=== PATIENT | male | born 1955 | race Two or more races ===

== ENCOUNTER 2017-03-08 15:04 | Observation (INO) | payer MEDICAID ==
[~2017-03-08] VITALS: Ht 167.6 cm; Wt 99.8 kg
[2017-03-08 16:08] LABS: Basophils # (auto) 0 uL; Basophils % (auto) 0.2 % (0.0-2.0); Eosinophils # (auto) 0 uL; Hemoglobin 16.8 g/dL (13.5-17.5); Lymphocytes # (auto) 1.5 uL; Lymphocytes % (auto) 10.4 % (10.0-50.0); Mean Corpuscular Hemoglobin 30.3 pg (28.0-32.0); Mean Corpuscular Hgb Conc. 34.2 g/dL (32.0-36.0); Mean Corpuscular Volume 88.4 fL (80.0-100.0); Mean Platelet Volume 7.1 fL (7.4-10.4); Neutrophils # (auto) 11.8 uL; Neutrophils % (auto) 82.4 % (37.0-80.0); Platelet Count (auto) 229 10^3/uL (140-450); Red Cell Distribution Width 13.3 % (11.6-16.0); SUSPECT VIEW TRANSMISSION; White Blood Cell 14.3 10^3/uL (4.4-10.8)
[2017-03-08 16:27] LABS: Albumin 3.5 g/dL (3.4-5.0); Anion Gap 13 (5-15); BUN/Creatinine Ratio 10.9; Blood Urea Nitrogen 14 mg/dL (7-18); Calcium 8.7 mg/dL (8.5-10.1); Carbon Dioxide 19 mmol/L (21-32); Chloride 104 mmol/L (98-107); GFR African American 74 mL/min; GFR Non-African American 61 mL/min; Glucose 129 mg/dL (74-106); Magnesium 2.2 mg/dL (1.6-2.6); Potassium 3.4 mmol/L (3.5-5.1); Sodium 136 mmol/L (136-145)
[2017-03-08] MEDS ORDERED: SODIUM CHLORIDE 0.9% 1,000 ML IV ONE (16:35)
[2017-03-08 16:40] LABS: Alkaline Phosphatase 87 U/L (45-117); Aspartate Aminotransferase 27 U/L (15-37); Bilirubin, Total 1.2 mg/dL (0.2-1.0); Total Protein 7.5 g/dL (6.4-8.2)
[2017-03-08] MEDS ORDERED: MECLIZINE HCL 25 MG TAB PO ONE (16:45)
[2017-03-08 17:13] LABS: Urine Bilirubin Negative (Negative); Urine Color Orange (Yellow); Urine Glucose Normal (Normal); Urine Hyaline Cast FEW /lpf (0 - 2); Urine Ketone Negative (Negative); Urine Mucus FEW (None Seen); Urine Nitrite Negative (Negative); Urine RBC 2 /hpf (0 - 3); Urine Squamous Epithelial Cell FEW /hpf (<5); Urine Urobilinogen Normal (Negative); Urine pH 5.5 (5.0-8.0)
[2017-03-08 17:14] LABS: Urine Blood 1+ /uL (Negative)
[2017-03-08] MEDS ORDERED: POTASSIUM CHL 10% (20 MEQ/15ML) ORAL SOLN PO ONE (17:45)
[2017-03-08 18:04] VITALS: BP 134/75
== END 2017-03-08 18:50 | disposition home or self-care (01) | DRG 861 ==
LOC: ER 15:23 → OVERFLOW 16:37 → ER 18:50
PROVIDERS: ADMIT Emergency Medicine; ATTEND Emergency Medicine
DX: R53.1 Weakness (principal); I10 Essential (primary) hypertension; H83.09 Labyrinthitis, unspecified ear; E87.6 Hypokalemia
CPT/HCPCS: 36415; 71020; 80053; 81001; 83735; 84443; 84484; 85025; 93005; 96360; 99285; G0378; J8597

== ENCOUNTER 2021-09-27 10:01 | Emergency (ER) | payer OTHER, MEDICAID ==
[~2021-09-27] VITALS: Ht 170.2 cm; Wt 112.0 kg
[2021-09-27] MEDS ORDERED: cefTRIAXone 1GM/50ML D5W 50 ML IV ONE (11:30)
[2021-09-27] MEDS ORDERED: CLINDAMYCIN 900MG IV 50 ML IV ONE (11:30)
[2021-09-27 12:16] LABS: Basophils # (auto) 0.1 10 ^3/uL (0-0.2); Basophils % (auto) 1.2 % (0.0-2.0); Eosinophils # (auto) 0.1 10 ^3/uL (0-0.8); Eosinophils % (auto) 1.1 % (0.0-7.0); Hematocrit 43.7 % (41.0-53.0); Lymphocytes # (auto) 1.7 10 ^3/uL (0.4-5.4); Lymphocytes % (auto) 20.1 % (10.0-50.0); Mean Corpuscular Hgb Conc. 34.4 g/dL (32.0-36.0); Mean Corpuscular Volume 84.3 fL (80.0-100.0); Monocytes # (auto) 0.5 10 ^3/uL (0-1.3); Monocytes % (auto) 5.8 % (0.0-12.0); Neutrophils # (auto) 6.2 10 ^3/uL (1.6-8.6); Neutrophils % (auto) 71.8 % (37.0-80.0); Nucleated Red Blood Cells % 0.1 %; Red Blood Cells 5.19 10^6/uL (4.5-5.90); Red Cell Distribution Width 13.5 % (11.8-14.3); White Blood Cell 8.6 10^3/uL (4.4-10.8)
[2021-09-27 12:50] VITALS: BP 148/86
== END 2021-09-27 14:48 | disposition home or self-care (01) ==
LOC: ER 10:01
DX: L03.116 Cellulitis of left lower limb (principal); I10 Essential (primary) hypertension; S82.202D Unspecified fracture of shaft of left tibia, subsequent encounter for closed fracture with routine healing; S72.92XD Unspecified fracture of left femur, subsequent encounter for closed fracture with routine healing; X58.XXXD Exposure to other specified factors, subsequent encounter
CPT/HCPCS: 36415; 73700; 85025; 96365; 96368; 99284; J0696; J3490

== ENCOUNTER 2021-10-22 08:44 | Emergency (ER) | payer OTHER, MEDICAID ==
[~2021-10-22] VITALS: Ht 170.2 cm; Wt 110.7 kg
[2021-10-22 09:26] VITALS: BP 161/70
== END 2021-10-22 11:10 | disposition home or self-care (01) ==
LOC: ER 08:44
DX: S81.802D Unspecified open wound, left lower leg, subsequent encounter (principal); M10.9 Gout, unspecified; I10 Essential (primary) hypertension; X58.XXXD Exposure to other specified factors, subsequent encounter

== ENCOUNTER 2024-01-28 17:43 | Emergency (ER) | payer OTHER, MEDICAID ==
[~2024-01-28] VITALS: Ht 170.2 cm; Wt 115.6 kg
[2024-01-28] MEDS ORDERED: ONDANSETRON HCL 4 MG/2 ML VIAL IV ONE (18:15)
[2024-01-28] MEDS ORDERED: MORPHINE SULFATE 4 MG/ML SYR/VIAL IV ONE (18:15)
[2024-01-28 18:38] LABS: Basophils # (auto) 0.1 10 ^3/uL (0-0.2); Basophils % (auto) 0.6 % (0.0-2.0); Eosinophils # (auto) 0 10 ^3/uL (0-0.8); Eosinophils % (auto) 0.1 % (0.0-7.0); Hematocrit 40.3 % (41.0-53.0); Hemoglobin 13.7 g/dL (13.5-17.5); Lymphocytes # (auto) 0.9 10 ^3/uL (0.4-5.4); Lymphocytes % (auto) 7.2 % (10.0-50.0); Mean Corpuscular Hemoglobin 28.3 pg (28.0-32.0); Mean Corpuscular Hgb Conc. 33.9 g/dL (32.0-36.0); Mean Corpuscular Volume 83.3 fL (80.0-100.0); Monocytes # (auto) 0.8 10 ^3/uL (0-1.3); Monocytes % (auto) 6.5 % (0.0-12.0); Neutrophils # (auto) 11.1 10 ^3/uL (1.6-8.6); Neutrophils % (auto) 85.6 % (37.0-80.0); Red Blood Cells 4.84 10^6/uL (4.5-5.90); Red Cell Distribution Width 14.5 % (11.8-14.3); White Blood Cell 12.9 10^3/uL (4.4-10.8)
[2024-01-28 18:51] LABS: Chloride 103 mmol/L (98-107); Potassium 3.5 mmol/L (3.5-5.1); Sodium 136 mmol/L (136-145)
[2024-01-28 18:52] LABS: Anion Gap 7 (5-15); Carbon Dioxide 26 mmol/L (20-30)
[2024-01-28 18:53] LABS: Calcium 9.4 mg/dL (8.7-10.4)
[2024-01-28 18:57] LABS: Glucose 129 mg/dL (74-106); Uric Acid 11.3 mg/dL (3.7-9.2)
[2024-01-28 18:58] LABS: BUN/Creatinine Ratio 20.5 (10.0-20.0); Blood Urea Nitrogen 23 mg/dL (9-23)
[2024-01-28 19:16] LABS: Erythrocyte Sedimentation Rate 72 mm/hr (0-20)
[2024-01-28] MEDS ORDERED: HYDR-4902 PO (20:35)
[2024-01-28 21:20] VITALS: TEMP 97.9; O2SAT 98
[2024-01-28] MEDS: ONDANSETRON ODT 4 MG TAB PO ONE (21:38)
[2024-01-28] MEDS: INDOMETHACIN 25 MG CAP PO ONE (21:38)
[2024-01-28] MEDS: MORPHINE SULFATE 4 MG/ML SYR/VIAL IM ONE (21:38)
[2024-01-28] MEDS: COLCHICINE 0.6 MG CAP PO ONE (21:38)
[2024-01-28 22:00] VITALS: BP 150/87; PULSE 95; RESP 18
== END 2024-01-28 22:04 | disposition home or self-care (01) ==
LOC: ER 17:43
DX: L03.116 Cellulitis of left lower limb (principal); M10.9 Gout, unspecified; I10 Essential (primary) hypertension; E78.5 Hyperlipidemia, unspecified; Z98.890 Other specified postprocedural states
CPT/HCPCS: 36415; 80048; 84550; 85025; 85652; 93005; 93970; 93971; 96372; 99285; J2270; Q0162